=== PATIENT | female | born 1960 | race Caucasian/White ===

== ENCOUNTER 2016-10-02 05:41 | Inpatient (IN) | payer SELFPAY ==
[2016-10-02] MEDS ORDERED: ASPIRIN 81 MG TABLET, CHEWABLE PO ONE (05:42)
[2016-10-02] MEDS ORDERED: MORPHINE SULFATE 10 MG/ML INJ IV ONE (06:14)
[2016-10-02 06:22] LABS: ABSOLUTE LYMPHOCYTES (AUTO) 1.4 10^3/uL (0.5-4.7); ABSOLUTE NEUT (AUTO) 10.8 10^3/uL (1.7-8.2); BASOPHILS % (AUTO) 0.3 % (0-2); EOSINOPHILS % (AUTO) 0.4 % (0-6); HEMATOCRIT 34.6 % (36.0-47.0); HEMOGLOBIN 11.7 g/dL (12.0-15.5); HGB HCT DIFFERENCE 0.5; LYMPHOCYTES % (AUTO) 10.4 % (13-45); MEAN CORPUSCULAR HEMOGLOBIN 29.3 pg (27.0-33.4); MEAN CORPUSCULAR HGB CONC 33.8 g/dL (32.0-36.0); MEAN CORPUSCULAR VOLUME 87 fl (80-97); MONOCYTES % (AUTO) 7.7 % (3-13); RED BLOOD COUNT 3.99 10^6/uL (3.72-5.28); RED CELL DISTRIBUTION WIDTH 13.5 % (11.5-14.0); SEGMENTED NEUTROPHILS % (AUTO) 81.2 % (42-78); WHITE BLOOD COUNT 13.2 10^3/uL (4.0-10.5)
[2016-10-02 06:37] LABS: ALANINE AMINOTRANSFERASE 374 U/L (9-52); ALBUMIN 4.1 g/dL (3.5-5.0); ALKALINE PHOSPHATASE 256 U/L (38-126); ANION GAP 15 (5-19); ASPARTATE AMINO TRANSFERASE 362 U/L (14-36); BILIRUBIN,DIRECT 0.5 mg/dL (0.0-0.4); BILIRUBIN,TOTAL 1.1 mg/dL (0.2-1.3); BLOOD UREA NITROGEN 11 mg/dL (7-20); CALCIUM 9.3 mg/dL (8.4-10.2); CARBON DIOXIDE 27 mmol/L (22-30); CHLORIDE 102 mmol/L (98-107); CREATINE KINASE 56 U/L (30-135); CREATININE RESULT 0.48 mg/dL (0.52-1.25); GLUCOSE 134 mg/dL (75-110); POTASSIUM 3.6 mmol/L (3.6-5.0); SODIUM 143.6 mmol/L (137-145); TOTAL PROTEIN 7.4 g/dL (6.3-8.2)
[2016-10-02 07:02] LABS: CREATINE KINASE MB < 0.22 ng/mL (<4.55); TROPONIN I < 0.012 ng/mL
[2016-10-02] MEDS ORDERED: LEVOFLOXACIN 750 MG/D5W RTU 150 ML IV ONE (07:12)
[2016-10-02] MEDS ORDERED: NORMAL SALINE 1000 ML 1,000 ML IV PRN (07:34)
--- NOTE | 2016-10-02 07:41 | ER Document Report ---
ED General - General Chief Complaint: Chest Pain Stated Complaint: CHEST PAIN Mode of Arrival: Ambulatory Information source: Patient Notes: 56-year-old female presents with complaints of right lower lobe pain difficulty breathing a few days duration. Patient denies fevers or chills nausea vomiting or diarrhea. Patient denies any previous similar episodes. Patient denies any medical history TRAVEL OUTSIDE OF THE [place] IN LAST 30 DAYS: No - HPI Onset: Last week Onset/Duration: Persistent, Worse Quality of pain: Achy Severity: Mild Pain Level: 1 Associated symptoms: Nonproductive cough, Shortness of breath Exacerbated by: Walking Relieved by: Denies Similar symptoms previously: No Recently seen / treated by doctor: No - Related Data Allergies/Adverse Reactions: No Known Allergies Allergy (Verified 10/02/16 05:59) Past Medical History - Social History Smoking Status: Never Smoker Cigarette use (# per day): No Chew tobacco use (# tins/day): No Smoking Education Provided: No Frequency of alcohol use: None Drug Abuse: None Family History: Reviewed & Not Pertinent Patient has suicidal ideation: No Patient has homicidal ideation: No Renal/ Medical History: Denies: Hx Peritoneal Dialysis Past Surgical History: Reports: Hx Section - Immunizations Hx Diphtheria, Pertussis, Tetanus Vaccination: Yes Review of Systems - Review of Systems Notes: REVIEW OF SYSTEMS: CONSTITUTIONAL : Denies fever, chills, or sweats. Denies recent illness. EENT: Denies eye, ear, throat, or mouth pain or symptoms. Denies nasal or sinus congestion or discharge. Denies throat, tongue, or mouth swelling or difficulty swallowing. CARDIOVASCULAR: Admits chest pain RESPIRATORY: Admits to difficulty breathing GASTROINTESTINAL: Denies abdominal pain or distention. Denies nausea, vomiting , or diarrhea. Denies blood in vomitus, stools, or per rectum. Denies black, tarry stools. Denies constipation. GENITOURINARY: Denies difficulty urinating, painful urination, burning, frequency, blood in urine, or discharge. FEMALE GENITOURINARY: Denies vaginal bleeding, heavy or abnormal periods, irregular periods. Denies vaginal discharge or odor. MUSCULOSKELETAL: Denies back or neck pain or stiffness. Denies joint pain or swelling. SKIN: Denies rash, lesions or sores. HEMATOLOGIC : Denies easy bruising or bleeding. LYMPHATIC: Denies swollen, enlarged glands. NEUROLOGICAL: Denies confusion or altered mental status. Denies passing out or loss of consciousness. Denies dizziness or lightheadedness. Denies headache. Denies weakness or paralysis or loss of use of either side. Denies problems with gait or speech. Denies sensory loss, numbness, or tingling. Denies seizures. PSYCHIATRIC: Denies anxiety or stress. Denies depression, suicidal ideation, or homicidal ideation. ALL OTHER SYSTEMS REVIEWED AND NEGATIVE. Dictation was performed using [employer] voice recognition software PHYSICAL EXAMINATION: GENERAL: Well-appearing, well-nourished and in mild respiratory distress HEAD: Atraumatic, normocephalic. EYES: Pupils equal round and reactive to light, extraocular movements intact, conjunctiva are normal. ENT: Nares patent, oropharynx clear without exudates. Moist mucous membranes. NECK: Normal range of motion, supple without lymphadenopathy LUNGS: Decreased breath sounds in the right lower lobe crackles in the right mid - HEART: Tachycardic ABDOMEN: Soft, nontender, nondistended abdomen. No guarding, no rebound. No masses appreciated. Female : deferred Musculoskeletal: Normal range of motion, no pitting or edema. No cyanosis. NEUROLOGICAL: Cranial nerves grossly intact. Normal speech, normal gait. Normal sensory, motor exams PSYCH: Normal mood, normal affect. SKIN: Warm, Dry, normal turgor, no rashes or lesions noted. Physical Exam - Vital signs Vitals: Temp Pulse Resp BP Pulse Ox 98.2 F 89 26 H 151/72 H 89 L 10/02/16 05:59 10/02/16 05:59 10/02/16 05:59 10/02/16 05:59 10/02/16 05:59 Course - Re-evaluation Re-evalutation: 10/02/16 07:41 pt noted to have RLL pneumonia with sirs meeting sepsis criteria will admit , fluids and antibiotics ordered - Vital Signs Vital signs: Temp Pulse Resp BP Pulse Ox 98.2 F 89 26 H 151/72 H 94 10/02/16 05:59 10/02/16 05:59 10/02/16 05:59 10/02/16 05:59 10/02/16 06:18 - Laboratory Result Diagrams: 10/02/16 06:12 10/02/16 06:12 Laboratory results interpreted by me: 10/02/16 10/02/16 06:12 06:12 WBC 13.2 H Hgb 11.7 L Hct 34.6 L Seg Neutrophils % 81.2 H Lymphocytes % 10.4 L Absolute Neutrophils 10.8 H Creatinine 0.48 L Glucose 134 H Direct Bilirubin 0.5 H AST 362 H ALT 374 H Alkaline Phosphatase 256 H - Diagnostic Test Radiology reviewed: Image reviewed, Reports reviewed Critical Care Note - Critical Care Note Total time excluding time spent on procedures (mins): 34 Comments: 34 minutes of critical care time spent in direct contact evaluating and reevaluating the patient, treating symptoms, reviewing labs and studies and speaking with family and consultants excluding any procedures Discharge - Discharge Clinical Impression: Hypoxemia Pneumonia Qualifiers: Pneumonia type: due to unspecified organism Laterality: right Lung location: lower lobe of lung Qualified Code(s): J18.1 - Lobar pneumonia, unspecified organism Sepsis Qualifiers: Sepsis type: sepsis due to unspecified organism Qualified Code(s): A41.9 - Sepsis, unspecified organism Condition: Stable Disposition: ADMITTED INPATIENT Admitting Provider: Hospitalist Unit Admitted: Telemetry
[2016-10-02 07:42] LABS: VENOUS BLOOD BASE EXCESS -0.2 mmol/L; VENOUS BLOOD HCO3 26.4 mmol/L (20-32); VENOUS BLOOD PCO2 50.2 mmHg (35-63); VENOUS BLOOD PH 7.34 (7.30-7.42)
--- NOTE | 2016-10-02 09:15 | PDOC H&P ---
History of Present Illness Admission Date/PCP: 10/02/16 07:55 Patient complains of: Shortness of breath History of Present Illness: GARLAND BESS is a 56 year old female, no significant past medical history has seasonal allergies for the past 2 weeks which improved after intake of Flonase started to develop shortness of breath of 4 days duration. It started about 2 weeks ago with some sinus congestion and sneezing with no associated sore throat or fever. There is cough but is not productive. Patient was seen by her primary care physician where she was given Flonase and eventually the congestion and sneezing resolved. 4 days ago while the patient was moving furniture at home she started to develop right sided chest pain with associated pleurisy. She started to develop shortness of breath as well. No chills or fever. No nausea or vomiting at all. There is a decrease in appetite. Pain was worse on inspiration and coughing. Patient presented to the emergency room , oxygen saturation in room air was 89% and she was placed on oxygen. Chest x- ray revealed right lower lobe infiltrate. She was given antibiotics intravenously, chest CT scan was performed showing no pulmonary embolus but revealed the right lower lobe infiltrate and also on the left lower lobe. Incidental finding of gallstones were dictated the patient was then referred for admission. Past Medical History Pulmonary Medical History: Reports: Other - Seasonal allergies Past Surgical History Past Surgical History: Reports: Section Social History Information Source: Patient Smoking Status: Never Smoker Frequency of Alcohol Use: None Hx Recreational Drug Use: No Drugs: None Family History Family History: CAD, Malignancy - Lungs Parental Family History Reviewed: Yes Children Family History Reviewed: Yes Sibling(s) Family History Reviewed.: Yes Medication/Allergy Allergies/Adverse Reactions: No Known Allergies Allergy (Verified 10/02/16 05:59) Review of Systems Constitutional: PRESENT: headache(s) - Mild, weakness - Mild and generalized. ABSENT: chills, fever(s), night sweats, weight gain, weight loss Eyes: ABSENT: visual disturbances Ears: ABSENT: hearing changes Nose, Mouth, and Throat: ABSENT: mouth pain, sore throat Cardiovascular: PRESENT: chest pain - Right-sided, dyspnea on exertion. ABSENT : edema, orthropnea, palpitations Respiratory: PRESENT: cough - Dry, dyspnea. ABSENT: hemoptysis, sputum Gastrointestinal: ABSENT: abdominal pain, constipation, diarrhea, hematemesis, hematochezia, melena, nausea, vomiting Genitourinary: ABSENT: difficulty urinating, dysuria, hematuria Musculoskeletal: ABSENT: joint swelling Integumentary: ABSENT: pruritus, rash, wounds Neurological: ABSENT: abnormal gait, abnormal speech, confusion, dizziness, focal weakness, syncope Psychiatric: ABSENT: anxiety, depression, homidical ideation, suicidal ideation Endocrine: ABSENT: cold intolerance, heat intolerance, polydipsia, polyuria Hematologic/Lymphatic: ABSENT: easy bleeding, easy bruising Physical Exam Vital Signs: Temp Pulse Resp BP Pulse Ox 98.2 F 80 18 132/70 H 95 10/02/16 05:59 10/02/16 08:15 10/02/16 08:31 10/02/16 08:31 10/02/16 08:31 General appearance: PRESENT: no acute distress, cooperative, other - On nasal cannula oxygen however Head exam: PRESENT: atraumatic, normocephalic Eye exam: PRESENT: conjunctiva pink, EOMI, PERRLA. ABSENT: scleral icterus Ear exam: PRESENT: normal external ear exam. ABSENT: drainage Mouth exam: PRESENT: moist, neck supple, tongue midline Neck exam: ABSENT: carotid bruit, JVD, lymphadenopathy, thyromegaly Respiratory exam: PRESENT: decreased breath sounds - Right lower lung field, rales - Lower lung rick, rhonchi - Occasional bilateral. ABSENT: wheezes Cardiovascular exam: PRESENT: RRR. ABSENT: diastolic murmur, rubs, systolic murmur Pulses: PRESENT: normal dorsalis pedis pul Vascular exam: PRESENT: normal capillary refill GI/Abdominal exam: PRESENT: normal bowel sounds, soft. ABSENT: distended, guarding, mass, organolmegaly, rebound, tenderness Rectal exam: PRESENT: deferred Extremities exam: PRESENT: full ROM. ABSENT: calf tenderness, clubbing, pedal edema Neurological exam: PRESENT: alert, awake, oriented to person, oriented to place , oriented to time, oriented to situation Psychiatric exam: PRESENT: appropriate affect, normal mood. ABSENT: homicidal ideation, suicidal ideation Skin exam: PRESENT: dry, intact, warm. ABSENT: cyanosis, rash Results Laboratory Results: 10/02/16 08:12 Lactic Acid 0.7 Impressions: Chest X-Ray 10/02/16 05:42 IMPRESSION: Right lower lobe pneumonia. Chest/Abdomen CTA 10/02/16 06:14 IMPRESSION: 1. No evidence of PE or dissection. 2. Bilateral pneumonia, more extensive in the right lower lobe. Assessment & Plan - Diagnosis (1) Pneumonia Qualifiers: Pneumonia type: due to unspecified organism Laterality: right Lung location: lower lobe of lung Qualified Code(s): J18.1 - Lobar pneumonia, unspecified organism Is this a current diagnosis for this admission?: Yes (2) Hypoxemia Is this a current diagnosis for this admission?: Yes (3) Hyperglycemia Is this a current diagnosis for this admission?: Yes (4) Gallstones Is this a current diagnosis for this admission?: Yes - Time Time Spent: 50 to 70 Minutes - Inpatient Certification Based on my medical assessment, after consideration of the patient's comorbidities, presenting symptoms, or acuity I expect that the services needed warrant INPATIENT care.: Yes I certify that my determination is in accordance with my understanding of Medicare's requirements for reasonable and necessary INPATIENT services [42 CFR 412.3e].: Yes Medical Necessity: Need Close Monitoring Due to Risk of Patient Decompensation, Need For IV Fluids, Need for IV Antibiotics, Risk of Complication if Not Cared For in Hospital Post Hospital Care: D/C Accountant Cost Documentation - Plan Summary Plan Summary: We will admit the patient to telemetry. Give supplemental oxygen and DVT prophylaxis with Lovenox. Culture the sputum and blood. Begin intravenous antibiotics with ceftriaxone and Zithromax. In the meantime I will obtain a follow-up liver function tests in the morning. She does not have signs and symptoms pointing to cholecystitis at this time. We will continue to monitor for that. Obtain hemoglobin A1c. Further testing depends on admission evaluation as outlined above.
[2016-10-02] MEDS: NORMAL SALINE 1000 ML 1,000 ML IV PRN (09:47)
[2016-10-02] MEDS: CEFTRIAXONE 1 GM/D5W RTU 50 ML IV SCH (10:19)
[2016-10-02] MEDS: GUAIFENESIN 600 MG TABLET.SA PO SCH ×2 (10:20→21:30)
[2016-10-02] MEDS: AZITHROMYCIN 500 MG in DEXTROSE 5%-WATER 250 ML IV SCH (11:58)
[2016-10-02] MEDS: ACETAMINOPHEN 325 MG TABLET PO PRN ×2 (12:15→18:41)
[2016-10-02] MEDS: ONDANSETRON HCL INJ/PF 4 MG/2 ML SDV IV PRN (13:07)
--- NOTE | 2016-10-02 15:33 | EKG REPORT ---
SEVERITY:- BORDERLINE ECG - SINUS RHYTHM PROBABLE LEFT ATRIAL ABNORMALITY : Confirmed by: Gwen Wright MD 02-Oct-2016 15:33:12
[2016-10-03] MEDS: ACETAMINOPHEN 325 MG TABLET PO PRN (01:12)
[2016-10-03] MEDS: LANSOPRAZOLE 30 MG TAB.RAP.DR PO SCH (05:57)
[2016-10-03 07:15] LABS: HEMATOCRIT 32.4 % (36.0-47.0); HEMOGLOBIN 10.7 g/dL (12.0-15.5); HGB HCT DIFFERENCE -0.3; MEAN CORPUSCULAR HEMOGLOBIN 28.9 pg (27.0-33.4); MEAN CORPUSCULAR HGB CONC 32.9 g/dL (32.0-36.0); MEAN CORPUSCULAR VOLUME 88 fl (80-97); RED BLOOD COUNT 3.69 10^6/uL (3.72-5.28); RED CELL DISTRIBUTION WIDTH 13.9 % (11.5-14.0); WHITE BLOOD COUNT 15.9 10^3/uL (4.0-10.5)
[2016-10-03 07:38] LABS: ALANINE AMINOTRANSFERASE 289 U/L (9-52); ALBUMIN 3.1 g/dL (3.5-5.0); ALKALINE PHOSPHATASE 216 U/L (38-126); ANION GAP 13 (5-19); ASPARTATE AMINO TRANSFERASE 178 U/L (14-36); BILIRUBIN,DIRECT 0.7 mg/dL (0.0-0.4); BILIRUBIN,TOTAL 1.1 mg/dL (0.2-1.3); BLOOD UREA NITROGEN 10 mg/dL (7-20); CALCIUM 8.5 mg/dL (8.4-10.2); CARBON DIOXIDE 23 mmol/L (22-30); CHLORIDE 106 mmol/L (98-107); CREATININE RESULT 0.46 mg/dL (0.52-1.25); GLUCOSE 100 mg/dL (75-110); POTASSIUM 3.6 mmol/L (3.6-5.0); SODIUM 142.4 mmol/L (137-145); TOTAL PROTEIN 6.1 g/dL (6.3-8.2)
[2016-10-03] MEDS: ENOXAPARIN SODIUM INJ 40 MG/0.4 ML DISP.SYRIN SUBCUT SCH (07:51)
[2016-10-03] MEDS: LEVALBUTEROL HCL NEB 1.25 MG/3 ML AMPUL NEB PRN ×2 (08:17→15:57)
[2016-10-03] MEDS: OXYCODONE-ACETAMINOPHEN 5-325 MG TABLET PO PRN ×4 (08:50→23:45)
[2016-10-03] MEDS: GUAIFENESIN 600 MG TABLET.SA PO SCH ×2 (08:52→23:16)
[2016-10-03] MEDS: CEFTRIAXONE 1 GM/D5W RTU 50 ML IV SCH (08:54)
--- NOTE | 2016-10-03 09:29 | PDOC PROGRESS REPORT ---
Subjective Progress Note for:: 10/03/16 Subjective:: Patient continues to complain of right-sided rib pain on inspiration. Patient has less coughing. No nausea or vomiting. Tolerating oral intake. No diarrhea. No worsening shortness of breath. Physical Exam Vital Signs: Temp Pulse Resp BP Pulse Ox 98.7 F 82 18 152/67 H 94 10/03/16 07:17 10/03/16 08:20 10/03/16 08:20 10/03/16 07:17 10/03/16 08:20 Intake & Output 10/02/16 10/03/16 10/04/16 06:59 06:59 06:59 Intake Total 2588 Balance 2588 Weight 77.6 kg General appearance: PRESENT: no acute distress, cooperative, obese Head exam: PRESENT: normocephalic Eye exam: PRESENT: EOMI Mouth exam: PRESENT: moist, neck supple Neck exam: ABSENT: JVD Respiratory exam: PRESENT: decreased breath sounds - Right lower lung field, rales - Bilateral bases Cardiovascular exam: PRESENT: RRR. ABSENT: gallop GI/Abdominal exam: PRESENT: normal bowel sounds, soft, tenderness - Noted on the lower right rib cage in the right on palpation. ABSENT: distended Neurological exam: PRESENT: alert, awake, oriented to situation Skin exam: PRESENT: dry, warm. ABSENT: cyanosis Results Laboratory Results: 10/03/16 06:11 10/03/16 06:31 10/03/16 10/03/16 06:11 06:31 WBC 15.9 H RBC 3.69 L Hgb 10.7 L Hct 32.4 L MCV 88 MCH 28.9 MCHC 32.9 RDW 13.9 Plt Count 306 Sodium 142.4 Potassium 3.6 Chloride 106 Carbon Dioxide 23 Anion Gap 13 BUN 10 Creatinine 0.46 L Est GFR ( Amer) > 60 Est GFR (Non-Af Amer) > 60 Glucose 100 Calcium 8.5 Total Bilirubin 1.1 AST 178 H ALT 289 H Alkaline Phosphatase 216 H Total Protein 6.1 L Albumin 3.1 L 10/02/16 13:14 Troponin I < 0.012 Impressions: Chest X-Ray 10/02/16 05:42 IMPRESSION: Right lower lobe pneumonia. Chest/Abdomen CTA 10/02/16 06:14 IMPRESSION: 1. No evidence of PE or dissection. 2. Bilateral pneumonia, more extensive in the right lower lobe. Assessment & Plan - Diagnosis (1) Pneumonia Qualifiers: Pneumonia type: due to unspecified organism Laterality: right Lung location: lower lobe of lung Qualified Code(s): J18.1 - Lobar pneumonia, unspecified organism Is this a current diagnosis for this admission?: Yes (2) Hypoxemia Is this a current diagnosis for this admission?: Yes (3) Hyperglycemia Is this a current diagnosis for this admission?: Yes (4) Gallstones Is this a current diagnosis for this admission?: Yes - Time Time Spent with patient: 25-34 minutes - Plan Summary Plan Summary: Recheck WBC, it elevated today probably from the dose of steroid, we will try Mobic for the pleurisy. Percocet as needed for pain . We will obtain abdominal ultrasound, monitor liver function test. Add Flagyl intravenously to current antibiotic. Continue supportive care. Continue antibiotics and bronchodilators
[2016-10-03] MEDS: MELOXICAM 7.5 MG TABLET PO SCH (10:32)
[2016-10-03] MEDS: AZITHROMYCIN 500 MG in DEXTROSE 5%-WATER 250 ML IV SCH (10:36)
[2016-10-03] MEDS: METRONIDAZOLE 500 MG/NS RTU 100 ML IV SCH ×3 (12:23→23:45)
[2016-10-03] MEDS: NORMAL SALINE 1000 ML 1,000 ML IV PRN (23:17)
[2016-10-04] MEDS: OXYCODONE-ACETAMINOPHEN 5-325 MG TABLET PO PRN ×4 (04:50→19:39)
[2016-10-04] MEDS: METRONIDAZOLE 500 MG/NS RTU 100 ML IV SCH ×3 (05:00→19:39)
[2016-10-04] MEDS: LANSOPRAZOLE 30 MG TAB.RAP.DR PO SCH (05:00)
[2016-10-04 07:24] LABS: HEMATOCRIT 29.5 % (36.0-47.0); HEMOGLOBIN 9.7 g/dL (12.0-15.5); HGB HCT DIFFERENCE -0.4; MEAN CORPUSCULAR HEMOGLOBIN 28.7 pg (27.0-33.4); MEAN CORPUSCULAR HGB CONC 32.8 g/dL (32.0-36.0); MEAN CORPUSCULAR VOLUME 88 fl (80-97); RED BLOOD COUNT 3.37 10^6/uL (3.72-5.28); RED CELL DISTRIBUTION WIDTH 13.8 % (11.5-14.0); WHITE BLOOD COUNT 19.7 10^3/uL (4.0-10.5)
[2016-10-04 07:39] LABS: ALANINE AMINOTRANSFERASE 161 U/L (9-52); ALBUMIN 2.7 g/dL (3.5-5.0); ALKALINE PHOSPHATASE 155 U/L (38-126); ASPARTATE AMINO TRANSFERASE 47 U/L (14-36); BILIRUBIN,DIRECT 0.5 mg/dL (0.0-0.4); BILIRUBIN,TOTAL 0.8 mg/dL (0.2-1.3); TOTAL PROTEIN 5.4 g/dL (6.3-8.2)
[2016-10-04] MEDS: ENOXAPARIN SODIUM INJ 40 MG/0.4 ML DISP.SYRIN SUBCUT SCH (08:00)
[2016-10-04] MEDS: CEFTRIAXONE 1 GM/D5W RTU 50 ML IV SCH (09:17)
[2016-10-04] MEDS: GUAIFENESIN 600 MG TABLET.SA PO SCH ×2 (09:17→21:09)
[2016-10-04] MEDS: MELOXICAM 7.5 MG TABLET PO SCH (09:17)
[2016-10-04] MEDS: AZITHROMYCIN 500 MG in DEXTROSE 5%-WATER 250 ML IV SCH (10:49)
--- NOTE | 2016-10-04 14:45 | PDOC PROGRESS REPORT ---
Subjective Progress Note for:: 10/04/16 Subjective:: Slightly improved today. Shortness of breath is less. Pleurisy stress. No nausea or vomiting at all. Denies abdominal pain. Continues to have rib cage discomfort on the right lower lobe area on inspiration. Low-grade fever last night. Physical Exam Vital Signs: Temp Pulse Resp BP Pulse Ox 98.2 F 85 16 115/51 L 92 10/04/16 11:31 10/04/16 12:39 10/04/16 12:39 10/04/16 11:31 10/04/16 12:39 Intake & Output 10/03/16 10/04/16 10/05/16 06:59 06:59 06:59 Intake Total 2588 2840 880 Output Total 2400 600 Balance 2588 440 280 Weight 77.6 kg 79.2 kg General appearance: PRESENT: no acute distress, cooperative, other - Overweight Head exam: PRESENT: normocephalic Eye exam: PRESENT: EOMI Mouth exam: PRESENT: moist, neck supple Neck exam: ABSENT: JVD Respiratory exam: PRESENT: decreased breath sounds - Right lower lobe, rales - Bilateral bases. ABSENT: wheezes Cardiovascular exam: PRESENT: RRR. ABSENT: gallop GI/Abdominal exam: PRESENT: soft. ABSENT: distended, tenderness Extremities exam: ABSENT: pedal edema Neurological exam: PRESENT: alert, awake Skin exam: PRESENT: dry, warm. ABSENT: cyanosis Results Laboratory Results: 10/04/16 07:10 10/03/16 06:31 10/04/16 10/04/16 07:10 07:10 WBC 19.7 H RBC 3.37 L Hgb 9.7 L Hct 29.5 L MCV 88 MCH 28.7 MCHC 32.8 RDW 13.8 Plt Count 319 Total Bilirubin 0.8 AST 47 H ALT 161 H Alkaline Phosphatase 155 H Total Protein 5.4 L Albumin 2.7 L 10/02/16 13:14 Troponin I < 0.012 Impressions: Chest X-Ray 10/02/16 05:42 IMPRESSION: Right lower lobe pneumonia. Chest/Abdomen CTA 10/02/16 06:14 IMPRESSION: 1. No evidence of PE or dissection. 2. Bilateral pneumonia, more extensive in the right lower lobe. Abdomen Ultrasound 10/03/16 00:00 IMPRESSION: Cholelithiasis. No evidence of acute cholecystitis. Assessment & Plan - Diagnosis (1) Pneumonia Qualifiers: Pneumonia type: due to unspecified organism Laterality: right Lung location: lower lobe of lung Qualified Code(s): J18.1 - Lobar pneumonia, unspecified organism Is this a current diagnosis for this admission?: Yes (2) Hypoxemia Is this a current diagnosis for this admission?: Yes (3) Hyperglycemia Is this a current diagnosis for this admission?: Yes (4) Gallstones Is this a current diagnosis for this admission?: Yes - Time Time Spent with patient: 25-34 minutes - Plan Summary Plan Summary: WBC seems to be trending up. We will change intravenous antibiotic to cefepime , and Levaquin. In the meantime we will monitor WBC as well as electrolytes. Continue anti-inflammatory. Liver function tests is trending down and improving. Ultrasound did not reveal findings of cholecystitis. We will continue to monitor. Repeat WBC , follow-up chest x-ray in the morning.
[2016-10-04] MEDS ORDERED: LEVOFLOXACIN 750 MG/D5W RTU 750 MG/150 ML RTUPB IV SCH (16:00)
[2016-10-04] MEDS: CEFEPIME 1 GM/D5W RTU 1 GM/50 ML RTUPB IV SCH (19:39)
[2016-10-04] MEDS: NORMAL SALINE 1000 ML 1,000 ML IV PRN (22:22)
[2016-10-05] MEDS: METRONIDAZOLE 500 MG/NS RTU 100 ML IV SCH ×3 (00:40→11:48)
[2016-10-05] MEDS: OXYCODONE-ACETAMINOPHEN 5-325 MG TABLET PO PRN ×3 (03:02→13:45)
[2016-10-05] MEDS: LANSOPRAZOLE 30 MG TAB.RAP.DR PO SCH (05:32)
[2016-10-05] MEDS: CEFEPIME 1 GM/D5W RTU 1 GM/50 ML RTUPB IV SCH (05:33)
[2016-10-05 06:31] LABS: ABSOLUTE EOSINOPHILS # (AUTO) 0.1 10^3/uL (0.0-0.6); ABSOLUTE LYMPHOCYTES (AUTO) 1.4 10^3/uL (0.5-4.7); ABSOLUTE MONOCYTES (AUTO) 1.3 10^3/uL (0.1-1.4); ABSOLUTE NEUT (AUTO) 15.7 10^3/uL (1.7-8.2); BASOPHILS % (AUTO) 0.2 % (0-2); EOSINOPHILS % (AUTO) 0.7 % (0-6); HEMATOCRIT 27.9 % (36.0-47.0); HEMOGLOBIN 9.5 g/dL (12.0-15.5); HGB HCT DIFFERENCE 0.6; LYMPHOCYTES % (AUTO) 7.7 % (13-45); MEAN CORPUSCULAR HEMOGLOBIN 29.4 pg (27.0-33.4); MEAN CORPUSCULAR VOLUME 86 fl (80-97); MONOCYTES % (AUTO) 7.1 % (3-13); RED BLOOD COUNT 3.23 10^6/uL (3.72-5.28); RED CELL DISTRIBUTION WIDTH 13.8 % (11.5-14.0); SEGMENTED NEUTROPHILS % (AUTO) 84.3 % (42-78); WHITE BLOOD COUNT 18.7 10^3/uL (4.0-10.5)
[2016-10-05] MEDS: ENOXAPARIN SODIUM INJ 40 MG/0.4 ML DISP.SYRIN SUBCUT SCH (07:43)
[2016-10-05] MEDS ORDERED: NORMAL SALINE 1000 ML 1,000 ML IV PRN (09:35)
[2016-10-05] MEDS: MELOXICAM 7.5 MG TABLET PO SCH (09:52)
[2016-10-05] MEDS: GUAIFENESIN 600 MG TABLET.SA PO SCH (09:52)
[2016-10-05 11:43] VITALS: BP 151/63
--- NOTE | 2016-10-05 11:56 | PDOC TRANSFER SUMMARY ---
General Admission Date/PCP: 10/02/16 08:58 Admission Date: 10/02/16 Transfer Date: 10/05/16 Accepting Facility: [facility] Accepting Physician: Dr. Kilgore Resuscitation Status: Full Code - Transfer Diagnosis (1) Loculated pleural effusion Is this a current diagnosis for this admission?: Yes (2) Pneumonia Is this a current diagnosis for this admission?: Yes (3) Hypoxemia Is this a current diagnosis for this admission?: Yes (4) Hyperglycemia Is this a current diagnosis for this admission?: Yes (5) Gallstones Is this a current diagnosis for this admission?: Yes - Transfer Medications Home Medications: No Home Medications 10/02/16 Transfer Medications: Current Medications Acetaminophen (Tylenol 325 Mg Tablet) 650 mg PO Q4HP PRN PRN Reason: pain or temp greater than 101F Stop: 11/01/16 08:57 Last Admin: 10/03/16 01:12 Dose: 650 mg Enoxaparin Sodium (Lovenox Inj 40 Mg/0.4 Ml Disp.Syrin) 40 mg SUBCUT QAM ARNOLD Stop: 11/02/16 07:59 Last Admin: 10/05/16 07:43 Dose: 40 mg Guaifenesin (Mucinex Sr 600 Mg Tablet.Sa) 600 mg PO Q12 ARNOLD Stop: 11/01/16 09:59 Last Admin: 10/05/16 09:52 Dose: 600 mg Metronidazole (Flagyl Rtu 500 Mg/Ns 100ml Premix) 100 mls @ 100 mls/hr IV Q6 ARNOLD Stop: 10/10/16 11:59 Last Admin: 10/05/16 06:46 Dose: 100 ml Levofloxacin/Dextrose (Levaquin Rtu 750 Mg/D5w 150 Ml Premix) 750 mg in 150 mls @ 100 mls/hr IV DAILY@1600 [facility] Stop: 10/11/16 15:59 Last Admin: 10/04/16 16:20 Dose: 150 ml Cefepime HCl (Maxipime Rtu 1 Gm/D5w 50 Ml Premix Bag) 1 gm in 50 mls @ 100 mls/ hr IV Q12A ARNOLD Stop: 10/11/16 17:59 Last Admin: 10/05/16 05:33 Dose: 50 ml Sodium Chloride (Nacl 0.9% 1000 Ml Iv Soln) 1,000 mls @ 60 mls/hr IV CONTINUOUS PRN PRN Reason: THIS MED IS NOT "PRN" Stop: 11/01/16 08:57 Lansoprazole (Prevacid 30 Mg Odt Tablet) 30 mg PO Q6AM ARNOLD Stop: 11/02/16 05:59 Last Admin: 10/05/16 05:32 Dose: 30 mg Levalbuterol HCl (Xopenex Neb 1.25 Mg/3 Ml Ampul) 1.25 mg NEB RTQ2HP PRN Stop: 11/01/16 08:57 Last Admin: 10/03/16 15:57 Dose: 1.25 mg Ondansetron HCl (Zofran Inj/Pf 4 Mg/2 Ml Sdv) 4 mg IV Q6HP PRN PRN Reason: NAUSEA Stop: 11/01/16 13:02 Last Admin: 10/02/16 13:07 Dose: 4 mg Oxycodone/Acetaminophen (Percocet 5-325 Mg Tablet) 1 tab PO Q4HP PRN PRN Reason: PAIN Stop: 10/10/16 08:11 Last Admin: 10/05/16 07:04 Dose: 1 tab Sodium Chloride (Saline Flush 2.5 Ml Monoject Prefil Syrin) 2.5 ml IV Q8 ARNOLD Stop: 11/01/16 13:59 Last Admin: 10/05/16 05:33 Dose: Not Given - Allergies Allergies/Adverse Reactions: No Known Allergies Allergy (Verified 10/02/16 05:59) - Diet/Activity Discharge Diet: Regular Discharge Activity: Bedrest Hospital Course Hospital Course: The patient was admitted to telemetry. She was placed on supplemental oxygen. She was started on broad-spectrum intravenous antibiotics with Flagyl, ceftriaxone and Zithromax. Antitussives as likewise given. Analgesics were given as well for pleurisy. Liver function panel test was monitored and this was trending down . An abdominal ultrasound was obtained showing no evidence of cholecystitis but did indeed showed a gallstone noted on the chest CT scan . Patient's WBC noted to trend up on monitoring and therefore the antibiotics were shifted to cefepime and intravenous Levaquin. A follow-up chest x-ray was obtained and revealing worsening of infiltrates with evidence of loculation. Pulmonary was briefly consulted as well as surgical service, recommendation was to transfer the patient that there is facility with a chest surgeon to evaluate the related effusion/empyema, and likely needing decortication. Blood cultures remain negative . [facility] was therefore contacted and accepted the patient. Accepting physician is Dr. Kilgore on the hospitalist service. The rest of the hospital stay was unremarkable. Physical Exam Vital Signs: Temp Pulse Resp BP Pulse Ox 98.9 F 97 18 151/63 H 98 10/05/16 11:39 10/05/16 11:39 10/05/16 11:39 10/05/16 11:39 10/05/16 11:39 Intake & Output 10/04/16 10/05/16 10/06/16 06:59 06:59 06:59 Intake Total 2840 2170 Output Total 2400 1800 Balance 440 370 Weight 79.2 kg 80.1 kg General appearance: PRESENT: no acute distress - At the moment, cooperative Head exam: PRESENT: normocephalic Eye exam: PRESENT: EOMI Mouth exam: PRESENT: moist, neck supple Neck exam: ABSENT: JVD Respiratory exam: PRESENT: decreased breath sounds - Right lung field, rales - Left lower lobe posteriorly Cardiovascular exam: PRESENT: RRR. ABSENT: gallop GI/Abdominal exam: PRESENT: soft. ABSENT: distended, tenderness Extremities exam: ABSENT: pedal edema Neurological exam: PRESENT: alert, awake, oriented to person, oriented to place , oriented to time, oriented to situation Skin exam: PRESENT: dry, warm. ABSENT: cyanosis Results Laboratory Results: 10/05/16 05:55 10/03/16 06:31 10/05/16 05:55 WBC 18.7 H RBC 3.23 L Hgb 9.5 L Hct 27.9 L MCV 86 MCH 29.4 MCHC 34.0 RDW 13.8 Plt Count 334 Seg Neutrophils % 84.3 H Lymphocytes % 7.7 L Monocytes % 7.1 Eosinophils % 0.7 Basophils % 0.2 Absolute Neutrophils 15.7 H Absolute Lymphocytes 1.4 Absolute Monocytes 1.3 Absolute Eosinophils 0.1 Absolute Basophils 0.0 10/02/16 13:14 Troponin I < 0.012 Impressions: Chest/Abdomen CTA 10/02/16 06:14 IMPRESSION: 1. No evidence of PE or dissection. 2. Bilateral pneumonia, more extensive in the right lower lobe. Abdomen Ultrasound 10/03/16 00:00 IMPRESSION: Cholelithiasis. No evidence of acute cholecystitis. Chest X-Ray 10/05/16 06:00 IMPRESSION: Worsening right lung aeration, progressing pleural fluid with loculation. Plan Discharge Plan: Transferred to [facility] for further evaluation and management. Time Spent: Less than 30 Minutes
[2016-10-05] MEDS: ONDANSETRON HCL INJ/PF 4 MG/2 ML SDV IV PRN (13:48)
== END 2016-10-05 15:25 | disposition short-term general hospital (02) | DRG 186 ==
LOC: ER 05:41 → EDBD 05:41 → UNDOADMIN 07:55 → EH 07:55 → 4W 17:47 → 4S 10-03 14:25
PROVIDERS: ADMIT Internal Medicine; ATTEND Internal Medicine
DX: J90 Pleural effusion, not elsewhere classified (principal); J18.1 Lobar pneumonia, unspecified organism; R09.02 Hypoxemia; K80.80 Other cholelithiasis without obstruction; R73.9 Hyperglycemia, unspecified
CPT/HCPCS: 36415; 71010; 71275; 76700; 80048; 80053; 80076; 82550; 82553; 82803; 83036; 83605; 83880; 84484; 85025; 85027; 87040; 93005; 93010; 93976; 94640; 96374; 99285; J0456; J0692; J0696; J1650; J1956; J2270; J2405; J3490; J7030; J7060